=== PATIENT | female | born 1965 | race Caucasian/White ===

== ENCOUNTER 2016-10-12 11:46 | Emergency (ER) | payer MEDICARE, OTHER ==
[~2016-10-12] VITALS: Ht 149.9 cm; Wt 61.2 kg
[~2016-10-12 11:46] MED LIST: ATOR10TA PO; CHOL100017 PO; CYCL10TA2 PO; GABA800T2 PO; HYDR-963 PO; HYDR-965 PO; HYDR25TA9 PO; LISI-338 PO; METF10002 PO; OMEP40CA5 PO; OXYM30TA PO; OXYM5TAB PO; POTA99TA10 PO; RANI300T PO; SPIR25TA3 PO; SPIR50TA2 PO; TIZA4TAB8 PO; TOPI25TA32 PO; TRAM50TA PO; TRAZ50TA15 PO; VENL150C PO; VENL150C6 PO
[2016-10-12 12:10] VITALS: BP 162/90
--- NOTE | 2016-10-12 12:21 | PHYS DOC ---
Past Medical History Past Medical History: Arthritis, Diabetes-Type II, High Cholesterol, Hypertension, IBS Additional Past Medical Histor: TURNERS SYNDROME, DDD,BX CARPAL TUNNEL, Chronic back pain, RLS Past Surgical History: Appendectomy, Cholecystectomy, Tonsillectomy Additional Past Surgical Histo: BACK SX, BX CARPAL TUNNEL, AMPUTATION R PINKIE Alcohol Use: Occasionally Drug Use: None Adult General Chief Complaint Chief Complaint: EARACHE/EAR PAIN HPI HPI Patient is a 51 year old female who presents with bilateral ear pain, slight rhinorrhea, slight nasal congestion, and minimal cough for the past 2 weeks. Notes pain to right anterior neck as well without trauma. Denies sore throat, dyspnea, f/c, n/v, dental pain. Review of Systems Review of Systems Constitutional: Denies fever or chills [] Eyes: Denies change in visual acuity, redness, or eye pain [] HENT: Denies sore throat [] Respiratory: Denies shortness of breath [] Cardiovascular: No additional information not addressed in HPI [] GI: Denies abdominal pain, nausea, vomiting, bloody stools or diarrhea [] : Denies dysuria or hematuria [] Musculoskeletal: Denies back pain or joint pain [] Integument: Denies rash or skin lesions [] Neurologic: Denies headache, focal weakness or sensory changes [] Endocrine: Denies polyuria or polydipsia [] Allergies Allergies Allergies Coded Allergies Type Severity Reaction Last Updated Verified aspirin Allergy Severe Anaphylaxis 05/25/15 Yes carisoprodol Allergy Severe Anaphylaxis 05/25/15 Yes NSAIDS (Non-Steroidal Anti-Inflamma Allergy Intermediate "I swell up like a balloon." 05/25/15 Yes ibuprofen Allergy Intermediate Swelling 05/25/15 Yes prednisone Allergy Intermediate Swelling 05/25/15 Yes prochlorperazine edisylate Allergy Intermediate Swelling, "makes me feel like I'm climbing the preciado" 05/25/15 Yes prochlorperazine maleate Allergy Intermediate Swelling, "makes me feel like I' m climbing the preciado" 05/25/15 Yes I S O L A T I O N *CONTACT* Allergy Unknown 08/11/15 Yes Uncoded Allergies Type Severity Reaction Last Updated Verified tide laundry soap Allergy Mild rash 01/24/14 Physical Exam Physical Exam Constitutional: Well developed, well nourished, no acute distress, non-toxic appearance. [] HENT: Normocephalic, atraumatic, bilateral TMs normal, oropharynx moist, no oral exudates, nose normal. Has right periauricular tender lymphadenopathy without overlying skin changes [] Eyes: PERRLA, EOMI, conjunctiva normal, no discharge. [] Neck: Normal range of motion, no tenderness, supple, no stridor. [] Cardiovascular:Heart rate regular rhythm [] Lungs & Thorax: Bilateral breath sounds clear to auscultation [] Abdomen: Bowel sounds normal, soft, no tenderness. [] Skin: Warm, dry, no erythema, no rash. [] Back: Normal ROM. [] Extremities: ROM intact, no edema. [] Neurologic: Alert and oriented X 3, normal motor function, normal sensory function, no focal deficits noted. [] Psychologic: Affect normal, judgement normal, mood normal. [] Current Patient Data Vital Signs Vital Signs Date Time Temp Pulse Resp B/P Pulse Ox O2 Delivery O2 Flow Rate FiO2 10/12/16 12:10 97.9 80 18 95 Room Air 97.9 Course & Med Decision Making Course & Med Decision Making Discussed symptomatic care for likely upper respiratory infection. Return precautions given. She understands and agrees with plan. Dragon Disclaimer Dragon Disclaimer This electronic medical record was generated, in whole or in part, using a voice recognition dictation system. Departure Departure Impression: Primary Impression: Upper respiratory infection, viral Disposition: 01 HOME, SELF-CARE Condition: STABLE Referrals: SIVAKUMAR DORSEY (PCP) Patient Instructions: Upper Respiratory Infection, Adult, [id number] Additional Instructions: Follow-up with your primary care doctor. Return for any concerns. Shruti VELÁZQUEZ MD Oct 12, 2016 12:21
== END 2016-10-12 12:30 | disposition home or self-care (01) ==
LOC: ER 11:46
DX: J06.9 Acute upper respiratory infection, unspecified (principal); H92.03 Otalgia, bilateral; E78.00 Pure hypercholesterolemia, unspecified; E11.9 Type 2 diabetes mellitus without complications; I10 Essential (primary) hypertension; K58.9 Irritable bowel syndrome, unspecified; G89.29 Other chronic pain; Q96.9 Turner's syndrome, unspecified; M19.90 Unspecified osteoarthritis, unspecified site; Z88.6 Allergy status to analgesic agent; Z88.8 Allergy status to other drugs, medicaments and biological substances; Z91.041 Radiographic dye allergy status
CPT/HCPCS: 99281